=== PATIENT | female | born 1955 | race Caucasian/White ===

== ENCOUNTER 2022-10-31 14:26 | Emergency (ER) | payer MEDICARE ==
[~2022-10-31 14:26] MED LIST: Iopamidol 300 61% 100 ML VIAL FS ONE
[2022-10-31 15:39] LABS: Bilirubin 1+ (Negative); Blood, Urine Negative (Negative); Clarity Clear (Clear); Glucose, Urine (Dipstick) Normal (Negative); Ketone, Urine Negative (Negative); Leukocyte 25 (Negative); Nitrite Negative (Negative); Protein, Urine (Dipstick) 30 mg/dl (Neg-Trace); pH, Urine 6.5 (5.0-9.0)
[2022-10-31 15:49] LABS: RBC/HPF None Seen HPF (0-3)
[2022-10-31 15:50] LABS: Bacteria/HPF Rare-Few HPF (None Seen); CAUTI Indications for Culture Pelvic or flank pain; Squamous Epithelial 0-3 HPF (0-3); Urine Culture Reflex No No; WBC/HPF 0-3 HPF (0-3)
[2022-10-31 16:23] LABS: #Eosinphils 0.1 10x3/uL (0.0-0.5); #Monocytes 0.5 10x3/uL (0.0-1.1); #Neutrophils 4.6 10x3/uL (1.5-8.4); %Basophils 0.5 % (0.0-2.0); %Eosinophils 0.8 % (0.0-6.0); %Lymphocytes 22.3 % (18.0-47.0); %Monocytes 7.7 % (0.0-10.0); %Neutrophils 68.5 % (40.0-75.0); Hematocrit 39.1 % (34.9-44.5); Hemoglobin 12.7 g/dL (12.0-15.5); Mean Corpuscular HGB CONC 32.5 g/dL (32.0-36.0); Mean Corpuscular Hemoglobin 26.1 pg (27.0-33.0); Mean Corpuscular Volume 80.5 fl (81.6-98.3); Mean Platelet Volume 11.6 fl (7.4-10.4); Platelet Count 237 10x3/uL (150-450); RBC Distribution Width 15.1 % (11.5-14.5); Red Blood Cell (RBC) Count 4.86 10x6/uL (3.90-5.03); White Blood Cell (WBC) Count 6.7 10x3/uL (3.5-10.5)
[2022-10-31 16:56] LABS: ALT (SGPT) 22 U/L (8-55); AST (SGOT) 28 U/L (5-34); Albumin 4.1 g/dL (3.4-4.8); Alkaline Phosphatase 113 U/L (40-110); Anion Gap 16 mmol/L (10-20); BUN (Urea Nitrogen) 10 mg/dL (9.8-20.1); Bilirubin, Total 0.6 mg/dL (0.2-1.2); Calc. Creatinine Clearance 0 mL/min (70-130); Calcium 9.1 mg/dL (7.8-10.44); Carbon Dioxide 24 mmol/L (23-31); Chloride 106 mmol/L (98-107); Estimated GFR 78; Globulin 3.3 g/dL (2.4-3.5); Glucose 100 mg/dL (80-115); Potassium 3.5 mmol/L (3.5-5.1); Protein, Total 7.4 g/dL (5.8-8.1); Sodium 142 mmol/L (136-145)
[2022-10-31] MEDS ORDERED: Morphine 4 MG/ML VIAL ONE (19:59)
[2022-10-31] MEDS ORDERED: Ondansetron PF 4 MG/2 ML Vial ONE (19:59)
== END 2022-10-31 21:11 | disposition home or self-care (01) ==
LOC: CSHERS 14:26
DX: R10.9 Unspecified abdominal pain (principal)
CPT/HCPCS: 36415; 74177; 80053; 81001; 83690; 85025; 96374; 96375; J2270; J2405; Q9967

== ENCOUNTER 2024-11-04 08:59 | Emergency (ER) | payer MEDICARE ==
[2024-11-04] MEDS ORDERED: Ondansetron PF 4 MG/2 ML Vial ONE (09:39)
[2024-11-04] MEDS ORDERED: Ketorolac Tromethamine 30 MG (1 mL) VIAL ONE (09:40)
[2024-11-04 09:53] LABS: Glucose, Urine (Dipstick) Normal (Negative); Leukocyte 100 (Negative); Protein, Urine (Dipstick) 30 mg/dl (Neg-Trace); Specific Gravity, Urine 1.020 (1.005-1.030)
[2024-11-04 10:04] LABS: #Basophils Less than 0.03 10x3/uL (0.0-0.2); #Eosinophils 0.08 10x3/uL (0.0-0.5); #Monocytes 0.35 10x3/uL (0.0-1.1); #Neutrophils 3.38 10x3/uL (1.5-8.4); %Basophils 0.4 % (0.0-2.0); %Eosinophils 1.6 % (0.0-6.0); %Lymphocytes 23.4 % (18.0-47.0); %Monocytes 7.0 % (0.0-10.0); %Neutrophils 67.4 % (40.0-75.0); Hematocrit 38.0 % (34.9-44.5); Hemoglobin 11.7 g/dL (12.0-15.5); Mean Corpuscular Hemoglobin 24.2 pg (27.0-33.0); Mean Corpuscular Volume 78.5 fL (81.6-98.3); Platelet Count 211 10x3/uL (150-450); Red Blood Cell (RBC) Count 4.84 10x6/uL (3.90-5.03); White Blood Cell (WBC) Count 5.01 10x3/uL (3.5-10.5)
[2024-11-04 10:08] LABS: Bacteria/HPF 1+ HPF (None Seen); CAUTI Indications for Culture Pelvic or flank pain; RBC/HPF None Seen HPF (0-3)
[2024-11-04 10:09] LABS: Urine Culture Reflex No No
[2024-11-04 10:24] LABS: ALT (SGPT) 16 U/L (Less than 34); AST (SGOT) 24 U/L (11-34); Albumin 3.4 g/dL (3.1-4.5); Alkaline Phosphatase 109 U/L (40-110); Anion Gap 12 mmol/L (10-20); BUN (Urea Nitrogen) 12 mg/dL (9.8-20.1); Bilirubin, Total 0.4 mg/dL (0.3-1.2); Calc. Creatinine Clearance 0 mL/min (70-130); Calcium 8.6 mg/dL (7.8-10.44); Carbon Dioxide 26 mmol/L (23-31); Chloride 107 mmol/L (98-107); Globulin 3.6 g/dL (2.4-3.5); Glucose 220 mg/dL (80-115); Lipase 19 U/L (8-78); Potassium 3.2 mmol/L (3.5-5.1); Sodium 142 mmol/L (136-145)
== END 2024-11-04 11:40 | disposition home or self-care (01) ==
LOC: CSHERS 08:59
DX: N13.2 Hydronephrosis with renal and ureteral calculous obstruction (principal); N39.0 Urinary tract infection, site not specified; I10 Essential (primary) hypertension
CPT/HCPCS: 74176; 80053; 81001; 83690; 85025; 87086; 93005; 96374; 96375; J1885; J2405